=== PATIENT | male | born 1995 | race Hispanic/Latino ===

== ENCOUNTER 2021-09-05 17:15 | Emergency (ER) | payer SELFPAY ==
[~2021-09-05 17:15] MED LIST: Iopamidol-370 76% 500 ML 1 ML ONE
[2021-09-05] MEDS ORDERED: Boostrix 0.5 ML (Tdap) VIAL ONE (17:38)
[2021-09-05] MEDS ORDERED: Ondansetron PF 4 MG/2 ML Vial ONE (17:38)
[2021-09-05] MEDS ORDERED: Morphine 4 MG/ML VIAL ONE (17:38)
[2021-09-05] MEDS ORDERED: CEFAZOLIN 2 GM VIAL ONE (17:39)
[2021-09-05 17:46] LABS: #Eosinphils 0.3 thou/uL (0.0-0.7); #Lymphocytes 1.9 thou/uL (1.20-3.40); #Monocytes 0.7 thou/uL (0.11-0.59); #Neutrophils 4.6 thou/uL (1.40-6.50); %Basophils 0.7 % (0.0-1.0); %Eosinophils 3.4 % (0.0-10.0); %Lymphocytes 25.9 % (21.0-51.0); %Monocytes 8.8 % (0.0-10.0); %Neutrophils 61.2 % (42.0-75.0); Hemoglobin 12.2 g/dL (14.0-18.0); Mean Corpuscular HGB CONC 34.2 g/dL (32.0-36.0); Mean Corpuscular Hemoglobin 31.9 pg (27.0-31.0); Mean Corpuscular Volume 93.3 fL (78.0-98.0); Mean Platelet Volume 8.5 fL (7.4-10.4); Platelet Count 234 thou/uL (130-400); RBC Distribution Width 11.2 % (11.5-14.5); Red Blood Cell (RBC) Count 3.84 mill/uL (4.70-6.10); White Blood Cell (WBC) Count 7.5 thou/uL (4.8-10.8)
[2021-09-05 18:13] LABS: ALT (SGPT) 26 U/L (8-55); AST (SGOT) 28 U/L (5-34); Alkaline Phosphatase 64 U/L (40-110); Anion Gap 15 mmol/L (10-20); BUN (Urea Nitrogen) 17 mg/dL (8.9-20.6); Bilirubin, Total 0.3 mg/dL (0.2-1.2); Calc. Creatinine Clearance 0 mL/min (70-130); Calcium 8.6 mg/dL (7.8-10.44); Carbon Dioxide 23 mmol/L (22-29); Chloride 105 mmol/L (98-107); Estimated GFR 86; Globulin 2.9 g/dL (2.4-3.5); Glucose 92 mg/dL (70-105); Potassium 3.5 mmol/L (3.5-5.1); Protein, Total 6.9 g/dL (6.0-8.3); Sodium 139 mmol/L (136-145)
== END 2021-09-05 20:35 | disposition home or self-care (01) ==
LOC: ERS 17:15
DX: S41.102A Unspecified open wound of left upper arm, initial encounter (principal); S27.322A Contusion of lung, bilateral, initial encounter; V58.0XXA Driver of pick-up truck or van injured in noncollision transport accident in nontraffic accident, initial encounter; Z23 Encounter for immunization
CPT/HCPCS: 70450; 71260; 72125; 74177; 80053; 85025; 90471; 90715; 94799; 96374; 96375; G0390; J0690; J2270; J2405; Q9967